=== PATIENT | female | born 1975 | race Caucasian/White ===

== ENCOUNTER → 2017-05-19 | Outpatient (CLI) | payer BC ==
[2004-11-23 11:55] VITALS: PULSE 74; TEMP 97
[~2017-05-19] MED LIST: CETIRIZINE PO
== END ==
LOC: MC.RAD 07:17
DX: Z12.31 Encounter for screening mammogram for malignant neoplasm of breast (principal)

== ENCOUNTER → 2019-11-12 | Outpatient (CLI) | payer BC ==
[2004-11-23 11:55] VITALS: PULSE 74; TEMP 97
== END ==
LOC: MC.RAD 07-17 15:00
DX: Z12.31 Encounter for screening mammogram for malignant neoplasm of breast (principal)

== ENCOUNTER → 2020-12-18 | Outpatient (CLI) | payer BC ==
[2004-11-23 11:55] VITALS: PULSE 74; TEMP 97
== END ==
LOC: MC.RAD 14:30
DX: Z12.31 Encounter for screening mammogram for malignant neoplasm of breast (principal)

== ENCOUNTER 2021-04-05 13:13 | Emergency (ER) | payer BC ==
[~2021-04-05] VITALS: Ht 170.2 cm; Wt 84.1 kg
[2021-04-05 13:20] VITALS: TEMP 97.8
[2021-04-05 14:21] LABS: HEMATOCRIT 45.8 % (37.0-47.0); HEMOGLOBIN 15.2 g/dl (12.5-16.0); MEAN CELL VOLUME 87 fl (80.0-100.0); MEAN CORPUSCULAR HEMOGLOBIN 29 pg (27-31); MEAN CORPUSCULAR HGB CONC 33 g/dl (33.0-37.0); MEAN PLATELET VOLUME 10.2 fl (7.4-10.4); PLATELET COUNT 311 K/mm3 (130-400); RED BLOOD COUNT 5.28 M/mm3 (4.10-5.30); REDCELL DISTRIBUTION WIDTH-CV 13.2 % (11.5-14.5)
[2021-04-05 14:37] LABS: ALBUMIN 4.4 gm/dL (3.5-5.0); BILIRUBIN,TOTAL 0.7 mg/dL (0.2-1.2); CALCIUM 9.3 mg/dL (8.4-10.2); CREATININE, serum 0.95 mg/dL (0.57-1.11); POTASSIUM 3.3 mmol/L (3.5-4.5)
[2021-04-05 14:42] VITALS: BP 113/77; PULSE 98
[2021-04-05 15:20] LABS: BAND 1 % (0-10); LYMPHOCYTE 30 % (20.0-51.0); NEUTROPHILS 62 % (42.0-75.2); PLATELET ESTIMATE NORMAL (NORMAL)
[2021-04-05 15:27] LABS: TSH w REFLEX 2.87 uIU/mL (0.350-4.940)
== END 2021-04-05 14:46 | disposition home or self-care (01) ==
LOC: COL.ER 13:13
PROVIDERS: Family Medicine
DX: I47.1 Supraventricular tachycardia (principal)
CPT/HCPCS: J0153; J7030

== ENCOUNTER → 2022-02-01 | Outpatient (CLI) | payer BC ==
[2004-11-23 11:55] VITALS: PULSE 74; TEMP 97
== END ==
LOC: MC.RAD 14:00
DX: Z12.31 Encounter for screening mammogram for malignant neoplasm of breast (principal)

== ENCOUNTER 2022-02-25 06:51 | Day surgery (SDC) | payer BC ==
[~2022-02-25] VITALS: Ht 170.2 cm; Wt 85.4 kg
[2022-02-25] MEDS ORDERED: PAXIL 20MG20 MG PO (07:10)
[2022-02-25] MEDS ORDERED: TRIAMC 0.1 454 TOP (07:11)
[2022-02-25 07:12] VITALS: BP 133/96; PULSE 87; TEMP 97.8
[2022-02-25 08:20] VITALS: BP 116/79; PULSE 84; TEMP 98.3
[2022-02-25 08:35] VITALS: BP 123/80; PULSE 74
[2022-02-25 08:50] VITALS: BP 118/75; PULSE 68
--- NOTE | 2022-02-25 08:50 | NUR ---
0820 RETURNS TO ROOM 5 PER CART. AWAKE, ALERT. AMBULATES TO RECLINER WITH STANDBY ASSIST. SEATED WITH LEGS ELEVATED. VITAL SIGNS OBTAINED. DENIES NAUSEA OR ABD PAIN. HERE, CALL LIGHT AT SIDE. 0827 DR. PROCTOR HERE TO VISIT WITH PATIENT. 0830 TOLERATES PO MUFFIN AND JUICE WITHOUT NAUSEA. 0831 DISCHARGE INSTRUCTIONS REVIEWED WITH PATIENT AND VERBALIZING UNDERSTANDING. COPY PROVIDED IN PATIENT DISCHARGE FOLDER. 0845 DRESSES SELF. 0851 DISCHARGE PER WHEELCHAIR TO VEHICLE DRIVEN BY
== END 2022-02-25 08:51 | disposition home or self-care (01) ==
LOC: SDCO 06:51
DX: Z12.11 Encounter for screening for malignant neoplasm of colon (principal); K62.89 Other specified diseases of anus and rectum
CPT/HCPCS: J2704; J7120